=== PATIENT | female | born 1935 | race Caucasian/White ===

== ENCOUNTER → 2017-05-26 | Outpatient (CLI) | payer OTHER ==
--- NOTE | ~2017-05-26 | XA230 ---
[facility] A Service of [facility] & [facility] RADIOLOGY TEXT RESULTS PATIENT: SHIV MADISON LOCATION: [facility] : 31 UNIT #: [id number] AGE: [address]: Leandro Chavez MD SEX: F ORDER DR: [id number] [facility] [address] [place], [place] [address] [id number] O MR#: [id number] Acc #: [id number] NAME: SHIV MADISON : 1935 SEX: F STUDY DATE/TIME: 05/26/2017 12:18 UNIT: [facility] ROOM: STUDY DESCRIPTION: XA FNA Attending Physician: Leandro Chavez M.D. Referring Physician: Leandro Chavez M.D. Ordering Physician: Leandro Chavez M.D. Primary Care Physician: Nathan Man M.D. MEDICAL IMAGING REPORT This report is preliminary unless electronic signature is present PROCEDURE Ultrasound-guided fine-needle aspiration of right thyroid nodule. INDICATIONS 81-year-old female with history of a small right thyroid nodules seen on outside ultrasound and FNA was requested. The risks, benefits, alternatives procedure were discussed with the patient and informed consent was obtained. In the procedure room, a time-out was performed confirming correct patient and procedure. All elements of maximum sterile-barrier technique utilized according to guidelines appropriate for the procedure. TECHNIQUE/FINDINGS Correlation is made with outside ultrasound from 03/14/2017. The study demonstrated a nodule within the right thyroid lobe inferior to a large cyst. This nodule was identified on today's ultrasound and measured roughly 1.2 cm in greatest dimension. The overlying skin was prepped and draped in the usual sterile fashion. 1% lidocaine was utilized to anesthetize the skin and underlying subcutaneous tissues. Next, under ultrasound guidance, fine-needle aspiration of this nodule was performed using six 25-gauge needles and samples were sent to the lab. Patient tolerated procedure well without immediate complications. IMPRESSION Technically successful fine needle aspiration of the right lobe of the thyroid gland as described. Dictated by... Rico Conrad M.D. THIS IS AN ELECTRONICALLY VERIFIED REPORT Rico Conrad M.D. at 05/28/2017 5:01 PM [facility] A Service of [facility] RADIOLOGY TEXT RESULTS PATIENT: SHIV MADISON LOCATION: [facility] #: [id number] : 31 UNIT #: [id number] AGE: [address]: Leandro Chavez MD SEX: F ORDER DR: Ismael TD: 05/27/2017 11:02 JOB #: [id number] MEDICAL IMAGING REPORT Page 1 of 1 COPY
== END | disposition home or self-care (01) ==
LOC: CIVR 05-20 13:00
PROC: 0GBH3ZX Excision of Right Thyroid Gland Lobe, Percutaneous Approach, Diagnostic (ICD-10-PCS; principal; 2017-05-26)
DX: E04.1 Nontoxic single thyroid nodule (principal)
CPT/HCPCS: 76942; 88172; 88173; 88305